=== PATIENT | male | born 1995 | race Caucasian/White ===

== ENCOUNTER 2018-06-06 17:44 | Emergency (ER) | payer OTHER ==
[~2018-06-06] VITALS: Ht 180.3 cm; Wt 61.4 kg
[2018-06-06 17:45] VITALS: BP 115/71; PULSE 75; TEMP 96.3
[2018-06-06] MEDS ORDERED: IBU800 M1 PO (17:47)
== END 2018-06-06 19:10 | disposition home or self-care (01) ==
LOC: COL.ER 17:44
DX: S61.012A Laceration without foreign body of left thumb without damage to nail, initial encounter (principal); W27.8XXA Contact with other nonpowered hand tool, initial encounter; Y92.009 Unspecified place in unspecified non-institutional (private) residence as the place of occurrence of the external cause

== ENCOUNTER → 2018-12-07 | Outpatient (CLI) | payer OTHER ==
[~2018-12-07] MED LIST: IBU800 M1 PO; REMERON 15M15 MG/TA1 PO; WELLBUTRIN XL300 M1 PO
== END ==
LOC: COL.RAD 10:02
DX: N50.3 Cyst of epididymis (principal); I86.1 Scrotal varices

== ENCOUNTER 2022-10-20 12:56 | Emergency (ER) | payer BC ==
[~2022-10-20] VITALS: Ht 180.3 cm; Wt 65.9 kg
[2022-10-20 13:21] VITALS: TEMP 98.4
[2022-10-20] MEDS ORDERED: LAMICTAL200 MG PO (13:24)
[2022-10-20] MEDS ORDERED: MINIPRESS 1M1 MG/CAP PO (13:24)
[2022-10-20 13:49] LABS: BASO % 0.5 % (0.0-2.0); EOS # 0.3 K/mm3 (0.0-0.7); EOS % 3.5 % (0.0-4.0); GRAN # 5.1 K/mm3 (1.4-6.5); HEMATOCRIT 43.7 % (42.0-52.0); HEMOGLOBIN 15.6 g/dl (13.5-18.0); LYMPH # 1.4 K/mm3 (1.2-3.4); LYMPH % 19.3 % (20.0-51.0); MEAN CELL VOLUME 89 fl (80.0-100.0); MEAN CORPUSCULAR HEMOGLOBIN 32 pg (27-31); MEAN CORPUSCULAR HGB CONC 36 g/dl (33.0-37.0); MEAN PLATELET VOLUME 10.6 fl (7.4-10.4); MONO # 0.6 K/mm3 (0.1-0.6); MONO % 7.6 % (1.7-9.3); PLATELET COUNT 211 K/mm3 (130-400); REDCELL DISTRIBUTION WIDTH-CV 11.4 % (11.5-14.5)
[2022-10-20 14:00] LABS: ALBUMIN 4.3 gm/dL (3.5-5.0); BILIRUBIN,TOTAL 0.5 mg/dL (0.2-1.2); CREATININE, serum 0.92 mg/dL (0.72-1.25); POTASSIUM 3.7 mmol/L (3.5-4.5); TOTAL PROTEIN 6.5 gm/dL (6.2-8.1)
[2022-10-20] MEDS ORDERED: ZOFRAN ODT4 MG PO (15:43)
[2022-10-20 15:49] LABS: COLLECTION METHOD CLEAN CATCH
[2022-10-20 15:53] VITALS: BP 120/73; PULSE 72
[2022-10-20 15:56] LABS: URINE APPEARANCE Clear (CLEAR/HAZY); URINE COLOR Yellow (YELLOW)
[2022-10-20 15:58] LABS: MUCOUS Present (NOT PRESENT); PH 7.5 (5.0-8.5); SQUAMOUS EPITHELIAL None Seen /hpf (0-10); URINE BACTERIA None Seen /hpf (NONE SEEN); URINE BLOOD Negative (NEGATIVE); URINE GLUCOSE Negative (NEGATIVE); URINE KETONE Negative (NEGATIVE); URINE NITRATE Negative (NEGATIVE); URINE PROTEIN(semi-quant) Negative (NEGATIVE); URINE RBC None Seen /hpf (0-2); URINE UROBILINOGEN 0.2 E.U/dL (0.2-1.0)
== END 2022-10-20 16:00 | disposition home or self-care (01) ==
LOC: COL.ER 12:56
PROVIDERS: Physician Assistant
DX: R10.30 Lower abdominal pain, unspecified (principal); R19.7 Diarrhea, unspecified; R11.0 Nausea; K92.1 Melena; F17.290 Nicotine dependence, other tobacco product, uncomplicated; Z28.310 Unvaccinated for COVID-19
CPT/HCPCS: J2405; J7030; Q9967